=== PATIENT | female | born 1960 | race Caucasian/White ===

== ENCOUNTER 2024-12-25 09:10 | Outpatient (CLI) | payer MEDICARE, SELFPAY | END 2024-12-25 09:11 | disposition home or self-care (01) | LOC: NFLDREF 12-30 23:03 | PROVIDERS: PCP Family Medicine; Visit Provider Family Medicine | DX: Z00.00 Encounter for general adult medical examination without abnormal findings (principal); F41.9 Anxiety disorder, unspecified; R53.83 Other fatigue; R41.3 Other amnesia; I49.9 Cardiac arrhythmia, unspecified; R07.9 Chest pain, unspecified | CPT/HCPCS: 80053; 80061; 82607; 84443 ==